=== PATIENT | male | born 1960 | race African-American/Black ===

== ENCOUNTER 2017-05-31 20:06 | Emergency (ER) | payer SELFPAY ==
[~2017-05-31] VITALS: Ht 170.2 cm; Wt 59.0 kg
[~2017-05-31 20:06] MED LIST: NKM
--- NOTE | 2017-05-31 20:24 | Emergency Room Report ---
History of Present Illness General Chief Complaint: Alcohol Intoxication Source: Patient Present Illness HPI 56YOM [address] after bystanders called EMS for patient with unsteady gait, suspected intoxication, trip and fall. Minor head trauma abrasion to left forehead Denies drug use Unsteady gait Denies other medical problems Not c/o anything. Allergies: Coded Allergies: No Known Allergies (Unverified , 05/31/17) Patient History Past Medical History: none Past Surgical History: none Pertinent Family History: none Social History: Reports: drug use, Denies: alcohol use, smoking Immunizations: UTD Reviewed Nursing Documentation: PMH: Agreed, PSxH: Agreed Nursing Documentation-PMH Past Medical History: No Stated History Review of Systems All Other Systems: negative except mentioned in HPI Physical Exam Vital Signs Date Time Temp Pulse Resp B/P Pulse Ox O2 Delivery O2 Flow Rate FiO2 05/31/17 20:02 98.4 84 16 140/74 99 Room Air Sp02 EP Interpretation: reviewed, normal General Appearance: normal inspection, well appearing, no apparent distress, alert, GCS 15, non-toxic, other - +AOB Head: normocephalic, other - 1cm abrasion to left forehead Eyes: bilateral eye EOMI, bilateral eye PERRL ENT: normal ENT inspection, hearing grossly normal, normal voice Neck: normal inspection, full range of motion, supple, no bony tend Respiratory: normal inspection, lungs clear, normal breath sounds, no respiratory distress, no retraction, no wheezing Cardiovascular #1: regular rate, rhythm, no edema Gastrointestinal: normal inspection, normal bowel sounds, non tender, soft, no guarding, no hernia Genitourinary: no CVA tenderness Musculoskeletal: normal inspection, back normal, normal range of motion, Tremaine' s Sign negative Neurologic: normal inspection, alert, oriented x3, responsive, bottle capper III-XII nml as tested, motor strength/tone normal, speech normal Psychiatric: normal inspection, judgement/insight normal, mood/affect normal Skin: normal inspection, normal color, no rash Medical Decision Making Diagnostic Impression: Primary Impression: Acute alcoholic intoxication Qualified Codes: F10.920 - Alcohol use, unspecified with intoxication, uncomplicated Additional Impression: Forehead abrasion Qualified Codes: S00.81XA - Abrasion of other part of head, initial encounter ER Course - VSS. Afebrile. - ETOH intox. - Unsteady gait - CT head negative for acute traumatic injury; old lamina propyrea fx. - Tetanus updated - Signed out to Dr Chandler at 10pm to re-eval for sobriety Last Vital Signs Date Time Temp Pulse Resp B/P Pulse Ox O2 Delivery O2 Flow Rate FiO2 05/31/17 20:02 98.4 84 16 140/74 99 Room Air Status: improved Disposition: HOME, SELF-CARE DEIRDRE ALBARADO M.D. May 31, 2017 20:24
[2017-05-31] MEDS ORDERED: Tetanus/Diptheria/Pertussis Vaccine 0.5ml Syr IM ONE (21:15)
[2017-05-31 23:51] VITALS: BP 132/66
--- NOTE | 2017-06-01 08:57 | Diagnostic Imaging Report ---
Indication: Headache Technique: Continuous helical CT scanning of the head was performed without intravenous contrast material. Axial and coronal 5 mm sections were generated. Dose: Total Dose Length Product - DLP [address] Dose Index - CTDIvol(s) 70.3 mGy. Comparison:None. Findings: The ventricular system is normal in size and configuration. There is no shift of midline structures. No abnormal extra-axial fluid collections are noted. There is no evidence of intracerebral bleeding. No other abnormal high or low density areas are noted within the brain. There is an old fracture of the right lamina papyracea. Impression: Old right lamina papyracea fracture. Otherwise negative CT scan of the head without contrast material. Aircraft this agrees with preliminary reading. The CT scanner at [facility] is accredited by the [employer] and the scans are performed using protocols designed to limit radiation exposure to as low as reasonably achievable to attain images of sufficient resolution adequate for diagnostic evaluation.
== END 2017-05-31 23:45 | disposition home or self-care (01) ==
LOC: EDBD 20:06 → EMR 20:18
DX: F10.920 Alcohol use, unspecified with intoxication, uncomplicated (principal); S00.81XA Abrasion of other part of head, initial encounter; Z23 Encounter for immunization; W01.0XXA Fall on same level from slipping, tripping and stumbling without subsequent striking against object, initial encounter; Y92.410 Unspecified street and highway as the place of occurrence of the external cause
CPT/HCPCS: 70450; 90471; 90715; 96372; 99284

== ENCOUNTER 2017-09-23 11:03 | Emergency (ER) | payer SELFPAY ==
[~2017-09-23] VITALS: Ht 170.2 cm; Wt 63.5 kg
[2017-09-23 11:10] VITALS: BP 120/80
[2017-09-23 13:01] VITALS: BP 120/80
--- NOTE | 2017-09-28 06:40 | Emergency Room Report ---
History of Present Illness General Chief Complaint: Alcohol Intoxication Source: Patient Present Illness HPI Patient presents with paramedics There was reported public intoxication Upon arrival the patient is awake and alert States that he drank too much last night Denies any headache denies any chest pain or shortness of breath Reports that he would like to go home and sleep Denies any focal deficit Patient has some signs of alcohol ingestion however is awake Allergies: Coded Allergies: No Known Allergies (Unverified , 05/31/17) Patient History Past Medical History: see triage record Pertinent Family History: none Reviewed Nursing Documentation: PMH: Agreed, PSxH: Agreed Nursing Documentation-PMH Past Medical History: No Stated History Review of Systems All Other Systems: negative except mentioned in HPI Physical Exam Vital Signs Date Time Temp Pulse Resp B/P (MAP) Pulse Ox O2 Delivery O2 Flow Rate FiO2 09/23/17 11:00 98.2 80 18 120/80 98 Room Air Sp02 EP Interpretation: reviewed, normal General Appearance: well appearing, no apparent distress Head: normocephalic, atraumatic Eyes: bilateral eye PERRL, bilateral eye EOMI ENT: hearing grossly normal, normal pharynx, TMs + canals normal, uvula midline Neck: full range of motion, supple, no meningismus, no bony tend Respiratory: lungs clear, normal breath sounds, no rhonchi, no respiratory distress, no retraction, no accessory muscle use Cardiovascular #1: normal peripheral pulses, regular rate, rhythm, no edema, no gallop, no JVD, no murmur Gastrointestinal: normal bowel sounds, non tender, soft, no mass, no organomegaly, non-distended, no guarding, no hernia, no pulsatile mass, no rebound Musculoskeletal: normal inspection Neurologic: oriented x3, responsive, outdoor power equipment mechanic III-XII nml as tested, motor strength/ tone normal, sensory intact Psychiatric: mood/affect normal Skin: warm/dry, palpation normal, other - Small abrasion right nasal bridge appears to be old and covered with scab formation Lymphatic: normal inspection, no adenopathy Medical Decision Making Diagnostic Impression: Primary Impression: alcohol abuse ER Course Patient was observed in the ER for extended period He continues to be awake and alert patient is ambulatory without any focal deficit Patient was offered food Continued to rest no signs of any neurological deficit No signs of any vomiting or other head trauma Patient was discharged home with a van service from hospital Otherwise no other family was available and patient did not want to call anyone at this time Last Vital Signs Date Time Temp Pulse Resp B/P (MAP) Pulse Ox O2 Delivery O2 Flow Rate FiO2 09/23/17 13:01 98.2 78 18 120/80 98 Room Air Status: improved Disposition: HOME, SELF-CARE Condition: Improved Referrals: NOT CHOSEN IPA/MD,REFERRING (PCP) Patient Instructions: Alcohol Use Disorder Additional Instructions: Patient is provided with the discharge instructions notified to follow up with primary doctor in the next 2-3 days otherwise return to the er with any worsening symptoms. Please note that this report is being documented using cit[employer] technology. This can lead to erroneous entry secondary to incorrect interpretation by the dictating instrument. ACE PETERSON D.O. Sep 28, 2017 06:40
== END 2017-09-23 12:30 | disposition home or self-care (01) ==
LOC: EDBD 11:03 → EMR 11:52
DX: F10.129 Alcohol abuse with intoxication, unspecified (principal); S00.31XA Abrasion of nose, initial encounter; X58.XXXA Exposure to other specified factors, initial encounter; Y92.410 Unspecified street and highway as the place of occurrence of the external cause
CPT/HCPCS: 99283

== ENCOUNTER 2020-05-30 12:11 | Emergency (ER) | payer OTHER ==
[~2020-05-30] VITALS: Ht 170.2 cm; Wt 61.2 kg
[2020-05-30 12:45] VITALS: BP 133/74
[2020-05-30] MEDS ORDERED: CEPHALEXIN500 MG ORAL (13:34)
[2020-05-30 13:40] VITALS: BP 128/66
--- NOTE | 2020-05-30 14:29 | Emergency Room Report ---
History of Present Illness General Chief Complaint: Laceration Source: Patient Present Illness HPI 59-year-old male presents for wound check. Cut his finger 2 weeks ago. Left index finger. Went to an urgent care. Got a tetanus shot. Got "glue" on his finger. States that he is here because the wound appears different. Denies pain. denies any fevers or chills. denies any discharge. no other aggravating or relieving factors. Denies any other associated symptoms. 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 Patient History Past Medical History: other Past Surgical History: none Pertinent Family History: none Social History: Denies: smoking, alcohol use, drug use Immunizations: UTD Reviewed Nursing Documentation: PMH: Agreed; PSxH: Agreed Nursing Documentation-PMH Hx Hypertension: Yes - HDL Review of Systems All Other Systems: negative except mentioned in HPI Physical Exam Vital Signs Date Time Temp Pulse Resp B/P (MAP) Pulse Ox O2 Delivery O2 Flow Rate FiO2 05/30/20 12:39 98.4 71 16 130/82 (98) 97 Room Air Sp02 EP Interpretation: reviewed, normal General Appearance: no apparent distress, alert, GCS 15, non-toxic Head: normocephalic Eyes: bilateral eye normal inspection, bilateral eye PERRL ENT: normal ENT inspection Neck: normal inspection Respiratory: normal inspection Cardiovascular #1: normal inspection Gastrointestinal: normal inspection Rectal: deferred Genitourinary: no CVA tenderness Musculoskeletal: normal inspection Neurologic: alert, motor strength/tone normal, oriented x3, sensory intact, responsive, speech normal Psychiatric: normal inspection Skin: other - healing laceration to L index finger. thick band tissue around distal L index finger. sensations intact Lymphatic: normal inspection Medical Decision Making Diagnostic Impression: Primary Impression: Encounter for wound re-check Additional Impression: Laceration ER Course Hospital Course 59-year-old M presents to ED for wound check. s/p laceration L index finger Clinical course Patient placed on stretcher. after initial history physical exam reveals male in no acute distress. the laceration at the distal finger is healing. no separation noted. there is a thick band of tissue at distal aspect. I reviewed with plastic/hand. Agrees that this is likely scar tissue and some compression likely due to some bandaging. The scar tissue will ultimately fall off. Discussed with the patient. He agrees to plan. Will discharge with antibiotics. I will provide referrals. Safe for discharge for close outpatient follow-up Diagnosis - encounter for wound re-check, laceration Stable and discharged to home with Rx Keflex. Followup with hand/plastics. Return to ED if any signs of infection develop Last Vital Signs Date Time Temp Pulse Resp B/P (MAP) Pulse Ox O2 Delivery O2 Flow Rate FiO2 05/30/20 12:45 98.4 74 16 133/74 97 Room Air Status: improved Disposition: HOME, SELF-CARE Condition: Stable Scripts Cephalexin* (KEFLEX*) 500 Mg Capsule 500 MG ORAL EVERY 6 HOURS for 7 Days, #28 CAP Prov: Tony Munoz MD 05/30/20 Referrals: Ayaan Carrizales MD NON PHYSICIAN (PCP) Patient Instructions: Wound Check Additional Instructions: continue antibiotics as directed. do not remove the scabbing. followup with hand /plastics Tony Munoz MD May 30, 2020 14:29
== END 2020-05-30 13:40 | disposition home or self-care (01) ==
LOC: EMR 13:05
DX: Z09 Encounter for follow-up examination after completed treatment for conditions other than malignant neoplasm (principal); S61.211D Laceration without foreign body of left index finger without damage to nail, subsequent encounter; I10 Essential (primary) hypertension; E78.5 Hyperlipidemia, unspecified; X58.XXXD Exposure to other specified factors, subsequent encounter
CPT/HCPCS: 99282

== ENCOUNTER 2020-07-20 21:51 | Emergency (ER) | payer OTHER ==
[~2020-07-20] VITALS: Ht 167.6 cm; Wt 66.7 kg
[~2020-07-20 21:51] MED LIST changes: +CEPHALEXIN500 MG ORAL
[2020-07-20] MEDS ORDERED: LOSARTAN POTASS25 MG ORAL (22:00)
[2020-07-20 22:07] VITALS: BP 105/68
--- NOTE | 2020-07-20 22:07 | NUR ---
ED Nurse Note: pt ambulated into ed from home CO insect bites on lower legs bilaterally with swelling and redness noted. Pt states insect bites occured last night after spending some time outside of his house. Pt aao x 4, ambulates with steady gait, VSS no ss of distress noted. Awaiting ERMD at bedside. Awaiting further orders.
--- NOTE | 2020-07-20 22:15 | NUR ---
ED Nurse Note: ERMD at bedside
--- NOTE | 2020-07-20 22:21 | Emergency Room Report ---
History of Present Illness General Chief Complaint: Skin Rash/Abscess Source: Patient Present Illness HPI The patient presents with several itchy bumps on his lower legs. These appeared after he visited his neighbors house yesterday. He is not sure if there were fleas or other insects. He denies any fevers or he denies any fevers or chills. He has been using alcohol which is not helped. Patient rates pain 4/10 and more itching than pain. It is nonradiating and localized to where the bites are. His tetanus is up-to-date. He denies major medical problems. Allergies: Coded Allergies: No Known Allergies (Unverified , 05/31/17) COVID-19 Screening Contact w/high risk pt: No Recent Travel to affected area: No Experienced COVID-19 symptoms?: No COVID-19 Testing performed RESPIRATORY CARE INSTRUCTOR: No Patient History Past Medical History: see triage record Social History: Denies: smoking Social History Narrative from home Reviewed Nursing Documentation: PMH: Agreed; PSxH: Agreed Nursing Documentation-PMH Past Medical History: No History, Except For Hx Hypertension: Yes - HDL Review of Systems Constitutional: Reports: see HPI Respiratory: Denies: shortness of breath Musculoskeletal: Denies: joint pain, joint swelling Skin: Reports: see HPI Neurological: Denies: numbness Physical Exam Vital Signs Date Time Temp Pulse Resp B/P (MAP) Pulse Ox O2 Delivery O2 Flow Rate FiO2 07/20/20 21:57 98.2 83 18 105/68 (80) 99 Room Air Sp02 EP Interpretation: reviewed, normal General Appearance: well appearing, no apparent distress, GCS 15 Head: normocephalic Eyes: bilateral eye normal inspection, bilateral eye PERRL, bilateral eye EOMI ENT: moist mucus membranes Neck: full range of motion Respiratory: normal inspection Cardiovascular #1: regular rate, rhythm Cardiovascular #2: 2+ radial (R) Gastrointestinal: normal inspection Musculoskeletal: gait/station normal, normal range of motion, no calf tenderness Neurologic: alert, grossly normal Psychiatric: mood/affect normal Skin: normal color, warm/dry, other - Several raised erythematous lesions lower legs Medical Decision Making Diagnostic Impression: Primary Impression: Bug bites Qualified Codes: W57.XXXA - Bitten or stung by nonvenomous insect and other nonvenomous arthropods, initial encounter ER Course Patient presents with several itchy lesions in his lower legs. Differential includes insect bites, allergic reaction, cellulitis amongst others. The lesions are localized and clinically appear to be reactions to insect bites. Local antibiotic treatment, hydrocortisone and Benadryl indicated. Discussed treatment plan with patient. Patient stable for outpatient observation and treatment. Last Vital Signs Date Time Temp Pulse Resp B/P (MAP) Pulse Ox O2 Delivery O2 Flow Rate FiO2 07/20/20 22:35 98.2 79 16 115/72 99 Room Air Status: improved Disposition: HOME, SELF-CARE Condition: Improved Scripts Diphenhydramine Hcl* (BENADRYL*) 25 Mg Capsule 25 MG ORAL Q6H PRN for Itching, #14 CAP Prov: Beka Chandler MD 07/20/20 Bacitracin (Bacitracin) 28.4 Gm Oint...g. 1 APPLIC TOPIC BID, #30 GM Prov: Beka Chandler MD 07/20/20 Hydrocortisone/Aloe (Hydrocortisone/Aloe 1% Cream*) Y Cr 1 APPLIC TOPIC TID PRN for Itching, #30 GM Prov: Beka Chandler MD 07/20/20 Beka Chandler MD Jul 20, 2020 22:21
[2020-07-20] MEDS ORDERED: HYDROCORTISONE-30 GM TOPIC (22:23)
[2020-07-20] MEDS ORDERED: BACITRACIN15 GM TOPIC (22:23)
[2020-07-20] MEDS ORDERED: BENADRYL25 MG ORAL (22:23)
[2020-07-20] MEDS ORDERED: Bacitracin Oint UD TOPIC ONE (22:30)
--- NOTE | 2020-07-20 22:34 | NUR ---
ED Nurse Note: all mediations administered, pt tolerated well no ss of distress noted. will continue to monitor.
[2020-07-20 22:35] VITALS: BP 115/72
--- NOTE | 2020-07-20 22:35 | NUR ---
ER DISCHARGE NOTE: Patient is cleared to be discharged per ERMD, pt is aox4, 99% on room air, with stable vital signs. pt was given dc and prescription instructions, pt was able to verbalize understanding, pt id band removed. pt is able to ambulate with steady gait. pt took all belongings.
== END 2020-07-20 22:35 | disposition home or self-care (01) ==
LOC: EMR 22:15
DX: S80.862A Insect bite (nonvenomous), left lower leg, initial encounter (principal); S80.861A Insect bite (nonvenomous), right lower leg, initial encounter; W57.XXXA Bitten or stung by nonvenomous insect and other nonvenomous arthropods, initial encounter; Y92.9 Unspecified place or not applicable; E78.5 Hyperlipidemia, unspecified; I10 Essential (primary) hypertension
CPT/HCPCS: 99282